=== PATIENT | male | born 1985 | race African-American/Black ===

== ENCOUNTER 2023-06-06 15:16 | Emergency (ER) | payer OTHER ==
[~2023-06-06] VITALS: Ht 157.5 cm; Wt 54.4 kg
[2023-06-06 15:33] VITALS: BP 119/73; PULSE 89; RESP 20; TEMP 98.1; O2SAT 99
[2023-06-06 16:15] VITALS: O2SAT 99
[2023-06-06 18:19] VITALS: BP 119/73; PULSE 89; RESP 20; TEMP 98.1; O2SAT 99
== END 2023-06-06 18:19 ==
LOC: MED 15:16
DX: K94.23 Gastrostomy malfunction (principal); I25.10 Atherosclerotic heart disease of native coronary artery without angina pectoris; I48.91 Unspecified atrial fibrillation; E11.9 Type 2 diabetes mellitus without complications; Z86.718 Personal history of other venous thrombosis and embolism; Z86.73 Personal history of transient ischemic attack (TIA), and cerebral infarction without residual deficits; Z91.018 Allergy to other foods
CPT/HCPCS: 43762; 74240; 99284; Q0092; Q9967